=== PATIENT | male | born 1965 | race Caucasian/White ===

== ENCOUNTER 2017-05-21 20:06 | Emergency (ER) | payer OTHER ==
[~2017-05-21] VITALS: Ht 170.2 cm; Wt 79.4 kg
[2017-05-21 20:17] VITALS: BP 139/75
--- NOTE | 2017-05-21 20:23 | NUR ---
TO LOBBY, A/W JOHNNY DURBIN ERMD NOTED
--- NOTE | 2017-05-21 21:21 | NUR ---
TO ER CHAIR D
--- NOTE | 2017-05-21 22:13 | NUR ---
PT C/O HEADACHE FOR 4 DAYS W/ NAUSEA. PT STATES HE HAS HAD HEADACHE AND TOOK OTC MEDS W/ NO RELIEF. PT C/O BLURRY VISION. PT IS AA&OX4, SPEAKING FULL CLEAR SENTENCES, PERRL. PT DENIES PMH
[2017-05-22] VITALS: BP 113/63
--- NOTE | 2017-05-22 00:01 | NUR ---
Patient discharged with v/s stable. Written and verbal after care instructions given and explained. Patient alert, oriented and verbalized understanding of instructions. Ambulatory with steady gait. All questions addressed prior to discharge. ID band removed. Patient advised to follow up with PMD. Rx of FIORECET given. Patient educated on indication of medication including possible reaction and side effects. Opportunity to ask questions provided and answered.
== END 2017-05-22 | disposition home or self-care (01) ==
LOC: MED 20:06
DX: G44.209 Tension-type headache, unspecified, not intractable (principal)
CPT/HCPCS: 99283

== ENCOUNTER 2018-04-19 19:54 | Emergency (ER) | payer OTHER ==
[~2018-04-19] VITALS: Ht 167.6 cm; Wt 80.5 kg
[2018-04-19 20:11] VITALS: BP 130/85
--- NOTE | 2018-04-19 20:13 | NUR ---
PT RETURNED TO LOBBY IN STABLE CONDITION
--- NOTE | 2018-04-19 23:19 | NUR ---
PT TO ER BED 7
--- NOTE | 2018-04-20 00:36 | NUR ---
PT BIB SELF C/O LEFT LEG PAIN S/P FALLING INTO Eqlim. REDNESS AND PUNTURE WOUND NOTED. NO ACTIVE BLEEDING OR DRAINAGE NOTED. PT STATES HE TRIED TO REMOVE HIMSELF AT HOME W/ NO SUCCESS. PT LAYING IN BED, APPEARS TO BE IN NO ACUTE DISTRESS.
--- NOTE | 2018-04-20 00:48 | NUR ---
Dr. Alvarez evaluating patient at bedside.
[2018-04-20 00:58] VITALS: BP 134/87
--- NOTE | 2018-04-20 01:57 | NUR ---
PATIENT LEFT WITHOUT BEING SEEN BY DR. MELCHOR. NO FURTHER CARE PROVIDED FOR PATIENT.
== END 2018-04-20 01:57 | disposition left against medical advice (07) ==
LOC: MED 19:54
DX: S80.812A Abrasion, left lower leg, initial encounter (principal); L03.116 Cellulitis of left lower limb; W20.8XXA Other cause of strike by thrown, projected or falling object, initial encounter; Y93.89 Activity, other specified; Y92.89 Other specified places as the place of occurrence of the external cause; Y99.8 Other external cause status
CPT/HCPCS: 99281